=== PATIENT | male | born 1935 | race Caucasian/White ===

== ENCOUNTER → 2020-01-16 | Outpatient (CLI) | payer MEDICARE, OTHER ==
[~2020-01-16] MED LIST: CATHETER FLUSH 10 ML SYR IV PRN
--- NOTE | 2020-01-16 11:52 | Diagnostic Imaging Report ---
PROCEDURE: CT abdomen and pelvis without contrast. TECHNIQUE: Multiple contiguous axial images were obtained through the abdomen and pelvis without the use of intravenous contrast. Auto Exposure Controls were utilized during the CT exam to meet ALARA standards for radiation dose reduction. INDICATION: Prostate cancer. CORRELATION STUDY: None. FINDINGS: Lung bases are clear. Heart size normal with scattered coronary artery calcification. Small hiatal hernia. Unenhanced liver, spleen, mildly atrophic pancreas and bilateral adrenal glands unremarkable. Multiple small stones are layering dependently. No bile duct dilatation. The abdominal aorta demonstrates trace wall calcification, nonaneurysmal. Slightly thinned appearance about the bilateral kidneys. Approximately 18 mm partially exophytic mass interpolar region posterior laterally left kidney is present. Margins are slightly indistinct. No calcification or evidence for obstructive uropathy. Gastrointestinal tract without obstruction or inflammation. There is no suggestion of pathologic enlarged central retroperitoneal and no mesenteric lymph nodes. Urinary bladder unremarkable. Prostate gland is mildly prominent, 4.6 x 4.2 cm. Mild scoliotic curvature of the lumbar spine. Advanced degenerative change of visualized thoracolumbar spine. Bilateral hip joints appearing unremarkable. IMPRESSION: 1. Negative for acute abnormality about the abdomen and/or pelvis. No findings to suggest abdominopelvic metastatic disease. 2. There is low-density mass left kidney. While could potentially reflect a cyst, cannot be definitively characterized and/or dismissed as a simple cyst at this time. Underlying neoplastic mass is not excluded. Consideration may be given to initially correlation with ultrasound imaging for follow-up. Dictated by: Dictated on workstation # [id number]
--- NOTE | 2020-01-16 14:37 | Diagnostic Imaging Report ---
INDICATION: Prostate carcinoma. Patient was administered 26.4 mCi technetium 99m MDP intravenously and whole-body imaging was performed after 3 hour delay. No prior bone scan is available for comparison. Normal uptake of activity by the axial and appendicular skeleton is noted. There is uptake by the kidneys with excretion into the urinary bladder. There is some uptake involving the midline calvarium. No other suspicious foci of tracer accumulation is seen. IMPRESSION: Unremarkable whole body bone scan with the exception of uptake in the region of the frontal bone. Correlation with CT of the head would be useful for further evaluation. Dictated by: Dictated on workstation # [id number]
== END ==
LOC: CARD 10:38
PROVIDERS: ATTEND Urology
DX: C61 Malignant neoplasm of prostate (principal); N28.89 Other specified disorders of kidney and ureter
CPT/HCPCS: 74176; 78306

== ENCOUNTER 2020-02-14 10:05 | Outpatient (RCR) | payer MEDICARE, OTHER | END 2020-05-14 | disposition home or self-care (01) | LOC: ONC 10:05 | PROVIDERS: ATTEND Radiology Radiation Oncology | DX: C61 Malignant neoplasm of prostate (principal); I11.9 Hypertensive heart disease without heart failure; E78.00 Pure hypercholesterolemia, unspecified; I25.2 Old myocardial infarction; Z85.828 Personal history of other malignant neoplasm of skin; Z95.5 Presence of coronary angioplasty implant and graft; Z87.891 Personal history of nicotine dependence; Z79.899 Other long term (current) drug therapy | CPT/HCPCS: 99204 ==

== ENCOUNTER → 2020-10-23 | Outpatient (CLI) | payer MEDICARE, OTHER ==
--- NOTE | 2020-10-23 11:24 | Diagnostic Imaging Report ---
PROCEDURE: CT abdomen without contrast. TECHNIQUE: Multiple contiguous axial images were obtained through the abdomen without the use of intravenous contrast. Auto Exposure Controls were utilized during the CT exam to meet ALARA standards for radiation dose reduction. INDICATION: Left renal mass The CT abdomen/pelvis exam performed on 01/16/2020 noted 18 mm partially exophytic low density mass along the posterior lateral aspect of the left kidney. That finding is again evident and no different. Reportedly, ultrasound is pending for further evaluation. The overall appearance of the abdomen has not changed significantly otherwise. There are numerous gallstones within the gallbladder but there is no evidence for acute cholecystitis. The liver, spleen, pancreas, adrenals, right kidney, aorta and inferior vena cava show no sign of an acute abnormality.. The stomach is partially filled with fluid and consequently difficult to assess. The lung bases are clear. The bone windows are unremarkable for fracture or for destructive lesion. IMPRESSION: 1. The small rounded area of low density along the lateral aspect of the left kidney seen previously is again evident and does not appear to have changed significant. Most likely this is a benign process such as a cyst. Reportedly, ultrasound is pending for further study. 2. There is no acute abnormality of the abdomen. 3. There is cholelithiasis without evidence for acute cholecystitis. Dictated by: Dictated on workstation # [id number]
--- NOTE | 2020-10-23 12:53 | Diagnostic Imaging Report ---
PROCEDURE: US Renal Bilateral. TECHNIQUE: Multiple real-time grayscale images were obtained over the kidneys in various projections bilaterally. INDICATION: Left renal mass. FINDINGS: An exophytic cyst off the upper pole of the left kidney measured 2.2 cm maximal. It appeared anechoic, simple and benign and requires no further workup or follow-up. The unobstructed kidneys appeared otherwise normal and more normal in size, cortical thickness and echotexture each measuring 10 cm. No echogenic or shadowing stone. Bladder appeared normal. Bilateral ureteral jets patency confirmed with color Doppler. IMPRESSION: A simple benign anechoic left upper pole renal cortical cyst is present. The unobstructed kidneys and urinary bladder appeared otherwise normal. Dictated by: Dictated on workstation # [id number]
== END ==
LOC: RAD 09:45
PROVIDERS: ATTEND Urology
DX: N28.89 Other specified disorders of kidney and ureter (principal); K80.20 Calculus of gallbladder without cholecystitis without obstruction
CPT/HCPCS: 74150; 76770